=== PATIENT | male | born 1960 | race American Indian/Alaskan Native ===

== ENCOUNTER 2019-10-17 12:25 | Emergency (ER) | payer OTHER ==
--- NOTE | 2019-10-17 12:36 | Emergency Department Report ---
ED CPR HPI - General Stated Complaint: CARDIAC ARREST Time Seen by Provider: 10/17/19 12:30 - History of Present Illness Initial Comments: 59-year-old male with a downtime of 1130 and an approximate arrival time of 1225. The patient had a witnessed cardiac arrest. Medics state that resuscitative efforts were provided for greater than 1/2-hour with no return of spontaneous circulation. The patient had "agonal respirations" on their arrival but no pulse. He was intubated and given multiple rounds of epinephrine. His glucose was less than 200. He had a history of diabetes and renal failure. He was found to have a pacemaker on arrival which was not apparent to the medics. MD Complaint: stopped breathing, collapsed during rest -: hour(s) (Nearly 1 hour) Place: home Bystander CPR Performed: No (I do not think so) Initial Findings in the Field: agonal ROSC in the Field: No Associated Injuries: No Treatments Prior to Arrival: intubation, epinephrine mgs # (Multiple) ED Review of Systems ROS: Stated complaint: CARDIAC ARREST Other details as noted in HPI Comment: Unobtainable due to pts medical conditions ED Past Medical Hx - Past Medical History Hx Diabetes: Yes Additional medical history: Renal failure ED Physical Exam - General Limitations: Other General appearance: other - Head Head exam: Present: atraumatic - Eye Pupils: Present: other (Fixed and dilated) - Neck Neck exam: Present: normal inspection - Respiratory Respiratory exam: Present: other (Breath sounds present with Ambu bag assist. Pacemaker noted.) - Cardiovascular Cardiovascular Exam: Present: other (No heart sounds) - GI/Abdominal GI/Abdominal exam: Absent: distended - Extremities Exam Extremities exam: Present: normal inspection - Neurological Exam Neurological exam: Present: other (GCS is 3) - Skin Skin exam: Present: dry ED Course - Reevaluation(s) Reevaluation #1: Patient was found to have pacemaker spikes. A Doppler exam was performed. It was negative for evidence of spontaneous circulation. The patient is already failed at least 1/2-hour of resuscitative efforts and was status post nearly an hour from their collapse. Further resuscitative efforts were surely futile. The patient was pronounced DOA. Family will be counseled. 10/17/19 12:37 Critical care attestation.: If time is entered above; I have spent that time in minutes in the direct care o f this critically ill patient, excluding procedure time. ED Disposition Clinical Impression: Cardiac arrest Disposition: DC-20 Is pt being admited?: No Does the pt Need Aspirin: No Condition: Stable Time of Disposition: 12:40
== END 2019-10-17 17:15 ==
LOC: ED 12:25
DX: I46.9 Cardiac arrest, cause unspecified (principal)
CPT/HCPCS: 99285